=== PATIENT | male | born 1960 | race Caucasian/White ===

== ENCOUNTER 2020-11-13 10:40 | Outpatient (CLI) | payer MEDICARE, SELFPAY ==
--- NOTE | ~2020-11-13 | CT_ITS ---
EXAMINATION:CT lung screening DATE: 11/13/2020 11:41 INDICATION: Personal history of tobacco dependence. Smoker who quit 4 years ago with 45 pack year his tory. TECHNIQUE: Computed tomography (CT) of the chest was performed without intravenous contrast. Automate d exposure control and iterative reconstruction technique were employed. The dose-length product (DLP ) was 107.08 mGy-cm. COMPARISON: None. FINDINGS: There is mild scarring at the lung apices. Calcified left lung nodules and calcified left h ilar lymph nodes are consistent with old granulomatous disease. There is a 3 mm nodule in left lower lobe. There is a 2 mm nodule in left upper lobe. No pleural effusion. The heart size is normal. There are coronary artery calcifications. No pericardial effusion. Calcifications in the spleen are consis tent with old granulomatous disease. There is mild thoracic spondylosis. There is mild chronic anteri or wedging of multiple midthoracic vertebral bodies. IMPRESSION: 1. Lung-RADS category 2: Benign appearance or behavior. Continue annual screening with noncontrast lo w-dose chest CT in 12 months. Reviewed, dictated and finalized at location A. IMPRESSION: 1. Lung-RADS category 2: Benign appearance or behavior. Continue annual screeni ng with noncontrast low-dose chest CT in 12 months.
== END 2020-11-13 10:41 | disposition home or self-care (01) ==
PROVIDERS: PCP Internal Medicine; Visit Provider Nurse Practitioner
DX: Z12.2 Encounter for screening for malignant neoplasm of respiratory organs (principal); Z87.891 Personal history of nicotine dependence
CPT/HCPCS: 71271

== ENCOUNTER 2021-06-17 13:18 | Outpatient (RCR) | payer MEDICARE, SELFPAY ==
--- NOTE | 2021-06-17 15:17 | PTOPEVAL ---
Thank you for referring Shade Yung to [facility].? The patient is scheduled to be seen for therapy? 1 x/week for 6 weeks. Please review, sign, date and return this plan of care ROQUE. I agree with and certify that the following plan of care is medically necessary. Referring Physician Date Attending Provider: Jelena Jara NP Diagnosis back pain, chronic pain Onset 20 yrs Subjective Information He was working at [employer] when he Query Text:As Reported By Patient/ fell hitting his back on the Family door jam. He has received previous therapy and injections 2 yrs ago without relief of symptoms . He does not perform any exercises. He uses marijuana to manage his pain. His level of function and pain has been the same for 20 yrs. Reports limitations with sitting and standing> 1 hr, lifting, walking and household task. Previous Treatments Previous Treatments For This Problem 2 yrs ago Pain Assessment Lower Back Reported Pain Level 6 Pain Description Sharp Pain Frequency Chronic,Continuous Lowest Pain Intensity 6 Greatest Pain Intensity 10 Pain Aggravating Factors Exercise/Activity,Lifting, Sitting,Walking,Weight Bearing /Standing Cervical and Lumbar ROM Lumbar ROM Lumbar Flexion Active Mid Heard:Hands to: Lumbar Extension (0-40) 0 Degrees Lumbar Comments severe pain with trunk flex and ext motion unable to ext past midline or rotation of trunk due to pain Lower Extremity Range of Motion General Lower Extremity Range of Motion Reason Not Measured WNL/Left,WNL/Right Gross Lower Extremity Range of Motion no pain with LE motions Comments Lower Extremity Muscle Strength Testing Hip Strength Right Hip Flexion Strength 3+ Fair + Hip Extension Strength 3+ Fair + Hip Abduction Strength 3 Fair Left Hip Flexion Strength 4- Good - Hip Extension Strength 4- Good - Hip Abduction Strength 3 Fair Knee Strength Left Knee Flexion Strength 4 Good Knee Extension Strength 4+ Good + Right Knee Flexion Strength 3+ Fair + Knee Extension Strength 4 Good Ankle Strength Bilateral Ankl
--- NOTE | 2021-06-25 13:49 | PCPTNOTE ---
Patient did not show up for scheduled appointment this date. made several attempts to call him, however, was unable to get though.
--- NOTE | 2021-07-02 14:10 | PCPTNOTE ---
Patient did not show up for scheduled appointment this date. Called & was unable to leave a message.
--- NOTE | 2021-07-09 13:17 | PCPTNOTE ---
Patient did not show up for scheduled appointment this date.
--- NOTE | 2021-07-11 10:15 | PCPTNOTE ---
Admitting Provider: Attending Provider: Jelena Jara NP Patient:Shade Yung Date of :1960 Physical Therapy Discharge Note Patient has not returned for any further treatments since 06/17/2021, therefore he will be discharged at this time. Patient?s initial visit was on 06/17/2021 14:00 and 1 visits with 3 no show visits. The goals have been not met due to did not attend his f/u visits. Thank you for referring this patient to [facility]. Please review, sign, date and return this discharge summary ROQUE. I have been updated about the patient's current status and I agree with discharge from the above service at this time. Referring Physician Date
== END 2021-07-14 09:14 | disposition home or self-care (01) ==
LOC: ANHPT 13:18
PROVIDERS: PCP Internal Medicine; Visit Provider Nurse Practitioner
DX: M54.50 Low back pain, unspecified (principal); G89.29 Other chronic pain
CPT/HCPCS: 97110; 97162

== ENCOUNTER 2021-06-30 07:14 | Outpatient (CLI) | payer MEDICARE, SELFPAY ==
--- NOTE | ~2021-06-30 | MR_ITS ---
EXAMINATION: MR brain/brain stem wo/w con DATE: 06/30/2021 09:08 INDICATION: Other amnesia. TECHNIQUE: Magnetic resonance imaging (MRI) of the brain and brainstem was performed without and with 15 mL MultiHance intravenous contrast. Sequences included sagittal and axial T1-weighted FSE, axial diffusion-weighted FS EPI, axial T2*-weighted GRE, axial T2-weighted FLAIR Propeller, and axial T2-we ighted Propeller. Postcontrast sequences included axial and coronal T1-weighted FSE. Apparent diffusi on coefficient (ADC) maps were created. COMPARISON: None. FINDINGS: There is no intracranial hemorrhage, acute infarction, or abnormal intracranial mass lesion . There are scattered areas of nonspecific increased T2-weighted signal intensity in the cerebral whi te matter. The ventricles are normal in size. There is mucosal thickening in the paranasal sinuses. T he orbits are normal. There are small bilateral mastoid effusions. IMPRESSION: 1. Mild nonspecific cerebral white matter disease, which likely represents chronic small vessel ische bebeto disease. Reviewed, dictated and finalized at location A. ZIPPER TRIMMER IMPRESSION: 1. Mild nonspecific cerebral white matter disease, which likely represents reliner valdo small vessel ischemic disease.
[2021-06-30 08:41] LABS: Estimated Glomerular Filt Rate > 60
== END 2021-06-30 07:15 | disposition home or self-care (01) ==
PROVIDERS: PCP Internal Medicine; Visit Provider Nurse Practitioner
DX: R41.3 Other amnesia (principal); R90.82 White matter disease, unspecified
CPT/HCPCS: 70553; A9577

== ENCOUNTER 2021-12-08 09:49 | Outpatient (CLI) | payer MEDICARE, SELFPAY ==
--- NOTE | ~2021-12-08 | CT_ITS ---
EXAMINATION: CT lung screening DATE: 12/08/2021 10:13 INDICATION: Personal history of nicotine dependence, prior smoker with 35 pack year history TECHNIQUE: Computed tomography (CT) of the chest was performed without intravenous contrast. The dose -length product (DLP) was 97.13 mGy-cm. Automated exposure control and iterative reconstruction techn ique were employed. COMPARISON: 11/13/2020 FINDINGS: There is a stable 3 mm nodule in the left lower lobe. There is a stable 2 mm nodule in the left upper lobe. Scarring is noted in the lung apices. Calcified pulmonary nodules and calcified left hilar lymph nodes are consistent with old granulomatous disease. No pathologically enlarged thoracic lymph nodes are identified. The heart size is normal. The lungs are free of acute opacities. There i s no pleural effusion or pneumothorax. Calcified coronary artery atherosclerosis is noted. Punctate c alcifications in an otherwise normal spleen likely represent healed granulomatous disease. Again note d is chronic anterior wedging of multiple thoracic vertebral bodies. IMPRESSION: 1. Lung-RADS category 2: Benign appearance or behavior. Continue annual screening with noncontrast lo w-dose chest CT in 12 months. Reviewed, dictated and finalized at location F. IMPRESSION: 1. Lung-RADS category 2: Benign appearance or behavior. Continue annual screeni ng with noncontrast low-dose chest CT in 12 months.
== END 2021-12-08 09:50 | disposition home or self-care (01) ==
LOC: ANHIMG 09:55
PROVIDERS: PCP Internal Medicine; Visit Provider Nurse Practitioner
DX: Z12.2 Encounter for screening for malignant neoplasm of respiratory organs (principal); Z87.891 Personal history of nicotine dependence
CPT/HCPCS: 71271

== ENCOUNTER 2023-06-10 10:31 | Outpatient (CLI) | payer MEDICARE, SELFPAY ==
--- NOTE | ~2023-06-10 | CT_ITS ---
EXAMINATION: CT lung screening DATE: 06/10/2023 11:10 INDICATION: Former smoker. Tobacco dependence. TECHNIQUE: Computed tomography (CT) of the chest was performed without intravenous contrast. The dose -length product was 97.91 mGy-cm. Automated exposure control and iterative reconstruction technique were employed. COMPARISON: CT dated 12/08/2021 FINDINGS: There are calcified granulomas of the spleen. Heart size normal. No thoracic lymphadenopath y. There is atherosclerosis of the aorta and coronary arteries. No significant pleural or pericardial effusion. There are calcified granulomas in the left lung. There is a 3 mm lingular nodule there is a 2 mm nodule in the left upper lobe. There is a 2 mm nodule in the perifissural region on the right. No endobronchial lesions. Moderate thoracic spondylosis. IMPRESSION: 1. Lung-RADS category 2: Benign appearance or behavior. Continue annual screening with noncontrast lo w-dose chest CT in 12 months. Reviewed, dictated and finalized at location L. IMPRESSION: 1. Lung-RADS category 2: Benign appearance or behavior. Continue annual screeni ng with noncontrast low-dose chest CT in 12 months.
== END 2023-06-10 10:32 | disposition home or self-care (01) ==
PROVIDERS: PCP Internal Medicine; Visit Provider Nurse Practitioner
DX: Z12.2 Encounter for screening for malignant neoplasm of respiratory organs (principal); R91.8 Other nonspecific abnormal finding of lung field; Z87.891 Personal history of nicotine dependence
CPT/HCPCS: 71271

== ENCOUNTER 2024-01-24 07:28 | Outpatient (CLI) | payer MEDICARE, SELFPAY ==
--- NOTE | ~2024-01-24 | NM_ITS ---
EXAMINATION: NM nehemias stress w perfusion DATE: 01/24/2024 16:24 CDT INDICATION: Dyspnea and chest pain TECHNIQUE: Rest images were obtained following intravenous administration of 10.2 mCi Tc99m tetrofosm in (Myoview). The patient was infused intravenously with Lexiscan (regadenoson). Then, 33 mCi Tc99m t etrofosmin (Myoview) was administered intravenously, and stress images were obtained. Data was recons tructed into short axis and horizontal and vertical long axis SPECT images. Gated SPECT images were a lso obtained. COMPARISON: None. FINDINGS: There is no definite reversible or fixed perfusion abnormality to suggest ischemia or infar ction. There is no segmental wall motion abnormality. Left ventricular ejection fraction measures 7 5%. IMPRESSION: 1. No definite ischemia or infarct. 2. Normal left ventricular ejection fraction measuring 75%. Reviewed, dictated and finalized at location B.
--- NOTE | 2024-01-24 07:59 | EST_ITS ---
Patient Info Name: Shade Yung Age: 63 years : 1960 Gender: Male Ht: 68 in Wt: 174 lbs BSA: 1.96 m2 HR: 66 bpm BP: 139 / 81 mmHg Heart Rhythm: Sinus Rhythm Exam Date: 01/24/2024 8:25 AM Exam Location: Echo Lab Patient Status: Outpatient Admit Date: 01/24/2024 Staff Ordering Physician: Jelena Jara NP Attending Provider: Jelena Jara NP Exercise Technologist: Geovanna Mcneil CT Exam Type: CA stress nehemias w NM Study Info Indications R06.09 - Other forms of dyspnea A regadenoson stress test was performed. Summary 1. 1. Negative lexiscan stress test for ischemic ST changes by ECG criteria. 2. 2. Stable hemodynamics throughout the test. 3. 3. Nuclear scan to follow and will be reported separately. Please correlate with it. 4. 4. Patient informed of the above results. Protocol: Lexiscan Stress ECG Details Stage: REST Duration (min): 2 min : 46 sec HR (bpm): 65 SBP (mmHg): 139 DBP (mmHg): 81 Stage: REST Duration (min): 6 min : 7 sec HR (bpm): 64 SBP (mmHg): 139 DBP (mmHg): 81 Stage: STAGE 1 Duration (min): 1 min : 0 sec HR (bpm): 90 SBP (mmHg): 145 DBP (mmHg): 93 Stage: RECOVERY Duration (min): 1 min : 0 sec HR (bpm): 95 SBP (mmHg): 145 DBP (mmHg): 93 Stage: RECOVERY Duration (min): 2 min : 0 sec HR (bpm): 87 SBP (mmHg): 145 DBP (mmHg): 93 Stage: RECOVERY Duration (min): 3 min : 0 sec HR (bpm): 80 SBP (mmHg): 151 DBP (mmHg): 90 Stage: RECOVERY Duration (min): 3 min : 14 sec HR (bpm): 79 SBP (mmHg): 151 DBP (mmHg): 90 Rest HR: 64 bpm Peak HR: 95 bpm Rest Sys BP: 139 mmHg Peak Sys BP: 151 mmHg Max Pred HR: 158 bpm % Max Pred HR: 60 % Target HR: 134 bpm Max RPP: 14,345 bpm*mmHg Termination Reason: Completed protocol Cardiac Symptoms: Shortness of breath Total Time: 1 min : 0 sec Rest Trent BP: 81 mmHg Peak Trent BP: 90 mmHg Total Dose: 0.4 mg Resting ECG Sinus rhythm, IRBBB. Stress ECG No ST changes. Arrhythmias None. Report Signatures
== END 2024-01-24 07:29 | disposition home or self-care (01) ==
PROVIDERS: PCP Internal Medicine; Visit Provider Nurse Practitioner
DX: R06.09 Other forms of dyspnea (principal); R07.9 Chest pain, unspecified; R04.9 Hemorrhage from respiratory passages, unspecified
CPT/HCPCS: 78452; 93017; A9502; J2785

== ENCOUNTER 2025-01-25 10:40 | Outpatient (CLI) | payer MEDICARE, SELFPAY ==
--- NOTE | ~2025-01-25 | CT_ITS ---
CT Scan of the Chest without Contrast: Clinical Indication: Lung cancer screening, nicotine dependence Technique: Contiguous sections were acquired throughout the chest without intravenous contrast. Dose reduction technique was used on this scan by utilizing automated exposure control and iterative recon struction technique. The dose-length product (DLP) was 80.08 mGy-cm. COMPARISON: 06/10/2023 Findings: There is no evidence of any significant mediastinal, hilar or axillary lymphadenopathy. The mediastin al soft tissues appear normal. There is no evidence of pleural or pericardial effusion. The lungs are clear, aside from calcified left lower lobe granuloma. Images through the upper abdomen reveal no abnormalities. Impression: Lung RADS 1: Negative. 12 month follow-up screening CT advised. Reviewed, dictated and finalized at location . Impression: Lung RADS 1: Negative. 12 month follow-up screening CT advised.
--- OUTSIDE RECORDS SUMMARY | 2025-01-25 11:38 | XMS_ITS | Clinical Summary ---
Author Organization [facility] Address [address] [place] [address] Care Team Providers Care Associate Property Manager Name Role Phone Kinsey Gomez Garett BLANC-SET AND EXHIBIT DESIGNER Primary Care Provider Source Comments [facility],non-owned Affiliates and Associated Physician Practices is amultiple site organization consisting of ambulatory clinics and hospital sitesin [place], [place], [place] and [place]. This disclosure is being madepursuant to the Care Everywhere program and may not contain all information available regarding this patient. Last updated 18.[facility] [employer] Allergies No known active allergies Social History Tobacco Use Types Packs/Day Years Used Date Smoking Tobacco: Former Cigarettes Smokeless Tobacco: Never Alcohol Use Standard Drinks/Week Comments Yes 0 (1 standard drink = 0.6 oz pur e alcohol) social drinker Sex and Gender Information Value Date Recorded Sex Assigned at Not on file Legal Sex Male 2:41 PM RADIATION MONITOR Gender Identity Not on file Sexual Orientation Not on file Last Filed Vital Signs Vital Sign Reading Time Taken Comments Blood Pressure 128/77 10/18/2019 7:00 PM RADIATION MONITOR Pulse - - Temperature 36.6 C (97.8 F) 10/18/2019 7:00 PM RADIATION MONITOR Respiratory Rate - - Oxygen Saturation 97% 10/18/2019 7:00 PM RADIATION MONITOR Inhaled Oxygen Concentration - - Weight 80.7 kg (178 lb) 10/18/2019 2:43 PM RADIATION MONITOR Height 172.7 cm (5' 8) 10/18/2019 2:43 PM RADIATION MONITOR Body Mass Index 27.06 10/18/2019 2:43 PM RADIATION MONITOR Plan of Treatment Health Maintenance Due Date Last Done Comments ROBERT (AGES 45-75) - COLON CA SCREENING 1960 COLON MONITORING 1960 COLONOSCOPY - COLON CA SCREENING 1960 CT COLONOGRAPHY - COLON CA SCREENING 1960 Colorectal Cancer Screening 1960 FIT - COLON CA SCREENING 1960 FLEX SIG - COLON CA SCREENING 1960 LIPID TESTING 1960 HIV SCREENING 1976 HEPATITIS C SCREENING 10/24/1979 DTAP/TDAP/TD VACCINES (1 - Tdap) 1980 PNEUMOCOCCAL VACCINE 50+ (1 of 1 - PCV) 10/29/2011 ZOSTER VACCINE (1 of 2) 10/29/2011 COVID-19 VACCINE (1 - season) 2024 DEPRESSION SCREENING 08/16/2024 INFLUENZA VACCINE (Season Ended) 2025 05/18/2019, 04/22/2018, 06/22/2017, Additional history exists Respiratory Syncytial Virus (RSV) Vaccine Pt: or over 60 yrs (1 - 1-dose 75+ series) 2036 HEPATITIS B VACCINE Aged Out No longe r eligible based on patient's age to complete this topic HIB VACCINE Aged Out No longer eligi ble based on patient's age to complete this topic HPV VACCINE Aged Out No longer eligi ble based on patient's age to complete this topic MENINGOCOCCAL (Group B) VACCINE SHARED DECISION-MAKING Aged Out No longer eligible based on patient's age to complete this topic MENINGOCOCCAL GROUPS A/C/Y/W VACCINE Aged Out No longer eligible based on patient's age to complete this topic [place] [address] [employer] [facility] Care Address: [facility] [id number] [place] [phone] [employer] Care Teams Associate Property Manager Relationship Specialty Start Date End Date Kinsey Gomez APRN-SET AND EXHIBIT DESIGNER [address] [place] [address] PCP - General Nurse Practitioner Family 10/18/19
== END 2025-01-25 10:41 | disposition home or self-care (01) ==
LOC: ANHIMG 10:43
PROVIDERS: PCP Nurse Practitioner; Visit Provider Nurse Practitioner
DX: Z12.2 Encounter for screening for malignant neoplasm of respiratory organs (principal); Z87.891 Personal history of nicotine dependence
CPT/HCPCS: 71271